=== PATIENT | female | born 1985 | race African-American/Black ===

== ENCOUNTER 2018-11-27 20:09 | Inpatient (IN) ==
[2018-11-27] MEDS ORDERED: CITRIC ACID/SODIUM CITRATE 30 ML UDCUP PO ONE (20:42)
[2018-11-27] MEDS ORDERED: ceFAZolin 3,000 MG in SYRINGE 1 EACH IV ONE (20:42)
[2018-11-27] MEDS ORDERED: FAMOTIDINE 20 MG/2 ML VIAL IV ONE (20:42)
[2018-11-27] MEDS ORDERED: OXYTOCIN/LR 30 UNIT/1,000 ML BAG IV ONE (20:45)
[2018-11-27] MEDS ORDERED: OXYTOCIN 10 UNIT/ML VIAL IM ONE (20:46)
[2018-11-27] MEDS ORDERED: LACTATED RINGERS 1,000 ML IV SCH ×2 (21:00→23:00)
[2018-11-27] MEDS ORDERED: SODIUM CHLORIDE 0.9% 100 ML IV ONE (21:06)
[2018-11-27] MEDS ORDERED: BUPIVACAINE SPINAL 0.75% 2 ML AMP SPINAL ONE (21:22)
[2018-11-27] MEDS ORDERED: ROPIVACAINE 0.5% 30 ML VIAL ONE (21:22)
[2018-11-27 21:27] LABS: Basophils % 0.3 % (0.0-0.8); Eosinophils # 0.1 10*3/uL (0.0-0.87); Eosinophils % 0.6 % (0.00-10.9); Hematocrit 35.9 VOL% (35.7-47.0); Hemoglobin 10.9 GM/DL (12.0-16.0); Immature Granulocytes % 0.5 %; Immature Granulocytes Absolute 0.04 #; Lymphocytes # 2.7 10*3/uL (1.4-4.0); Lymphocytes % 34.7 % (21.3-54.2); Mean Corpuscular HGB Conc 30.4 GM/DL (32-36); Mean Corpuscular Hemoglobin 25 PG (27-34); Mean Corpuscular Volume 82.5 FL (87-102); Mean Platelet Volume 13.2 FL (9.6-12.0); Monocytes # 0.6 10*3/uL (0.11-0.8); Monocytes % 8.3 % (1.7-12.7); Neutrophils # 4.3 10*3/uL (1.4-7.4); Neutrophils % 55.6 % (38.7-73.9); Platelet Count 217 T/CUMM (130-400); Red Blood Count 4.35 MC/CUMM (3.8-5.5); Red Cell Distribution Width 15.7 % (9.3-17.3); White Blood Count 7.7 T/CUMM (4-12)
[2018-11-27 21:32] LABS: INR 0.8; PT Patient Result 9.1 SECS; Partial Thromboplastin Time 23.6 SECS (0-40)
[2018-11-27 21:45] LABS: Albumin 2.4 G/DL (3.4-5.0); Bilirubin,Total 0.6 MG/DL (0.2-1.0); Calcium 9.6 MG/DL (8.5-10.1); Osmolality,Calculated 279.3 MOS/KG (273-304); Potassium 3.6 MMOL/L (3.5-5.1); Total Protein 7.3 G/DL (6.4-8.3)
[2018-11-27 21:50] LABS: Apearance,Urine CLEAR (Clear); Bacteria,Urine Occasional /HPF (Few); Bilirubin,Urine Negative (Negative); Blood, Urine Negative (Negative); Glucose,Urine (UA) Negative (Negative); Ketones,Urine Negative (Negative); Nitrite,Urine Negative (Negative); Protein,Urine Negative; RBC,Urine 2 /HPF (0-4); Squamous Epithelial Cell,Urine Occasional /HPF (0-10); Urine Color Yellow (Yellow); Urine Specific Gravity 1.005 (1.001-1.035); Urine Urobilinogen < 2.0 EU/DL (0.2-1.0); WBC,Urine 1 /HPF (0-6)
[2018-11-27] MEDS ORDERED: SUGAMMADEX 200 MG/2 ML VIAL IV ONE (22:23)
[2018-11-27] MEDS ORDERED: RHO(D) IMMUNE GLOBULIN 300 MCG SYRINGE IM ONE (22:49)
[2018-11-27] MEDS ORDERED: IBUPROFEN 800 MG TABLET PO PRN (22:49)
[2018-11-27] MEDS ORDERED: ACETAMINOPHEN 325 MG TABLET PO PRN (22:49)
[2018-11-27] MEDS ORDERED: OXYTOCIN/LR 20 UNIT/1,000 ML BAG IV ONE (22:49)
[2018-11-27] MEDS ORDERED: DEXTROSE 50% 25 GM/50 ML VIAL IV PRN (22:49)
[2018-11-27] MEDS ORDERED: ONDANSETRON 4 MG/2 ML VIAL IV PRN (22:49)
[2018-11-27] MEDS ORDERED: GLUCAGON 1 MG VIAL IM PRN (22:49)
[2018-11-27] MEDS ORDERED: LORazepam 2 MG/1 ML VIAL IV PRN (22:51)
[2018-11-27] MEDS ORDERED: PROPOFOL 200 MG/20 ML VIAL IV ONE (23:33)
[2018-11-27] MEDS ORDERED: SEVOFLURANE 1 UNIT/15 MINUTE INH ONE (23:33)
[2018-11-27] MEDS ORDERED: fentaNYL 100 MCG/2 ML VIAL ONE (23:33)
[2018-11-27] MEDS ORDERED: SUCCINYLCHOLINE 200 MG/10 ML VIAL ONE (23:34)
[2018-11-27] MEDS ORDERED: ESMOLOL 100 MG/10 ML VIAL IV ONE (23:34)
[2018-11-27] MEDS ORDERED: ROCURONIUM 100 MG/10 ML VIAL IV ONE (23:34)
[2018-11-27] MEDS ORDERED: ONDANSETRON 4 MG/2 ML VIAL ONE (23:34)
[2018-11-27] MEDS ORDERED: MIDAZOLAM 2 MG/2 ML VIAL ONE (23:34)
[2018-11-28] MEDS ORDERED: INSULIN REGULAR 100 UNIT/ML SUBCUT SCH (03:04)
[2018-11-28] MEDS: ceFAZolin 1,000 MG in SYRINGE 1 EACH IV SCH ×2 (05:15→12:58)
[2018-11-28 05:35] LABS: Basophils % 0.1 % (0.0-0.8); Hematocrit 33.9 VOL% (35.7-47.0); Hemoglobin 10.2 GM/DL (12.0-16.0); Immature Granulocytes % 0.5 %; Immature Granulocytes Absolute 0.05 #; Lymphocytes # 1.2 10*3/uL (1.4-4.0); Lymphocytes % 10.7 % (21.3-54.2); Mean Corpuscular HGB Conc 30.1 GM/DL (32-36); Mean Corpuscular Hemoglobin 25 PG (27-34); Mean Corpuscular Volume 82.1 FL (87-102); Mean Platelet Volume 12.5 FL (9.6-12.0); Monocytes # 0.5 10*3/uL (0.11-0.8); Monocytes % 4.1 % (1.7-12.7); Neutrophils # 9.4 10*3/uL (1.4-7.4); Neutrophils % 84.6 % (38.7-73.9); Platelet Count 204 T/CUMM (130-400); Red Blood Count 4.13 MC/CUMM (3.8-5.5); Red Cell Distribution Width 15.4 % (9.3-17.3); White Blood Count 11.1 T/CUMM (4-12)
[2018-11-28] MEDS: MAGNESIUM HYDROXIDE SUSP 30 ML UDCUP PO PRN ×2 (09:36→20:56)
[2018-11-28] MEDS: METOCLOPRAMIDE 10 MG TABLET PO SCH ×2 (09:37→20:57)
[2018-11-28] MEDS: MULTIVITAMIN (PRENATAL) TABLET PO SCH (09:37)
[2018-11-28] MEDS: INSULIN REGULAR 100 UNIT/ML SUBCUT SCH ×2 (09:38→21:11)
[2018-11-28] MEDS: DOCUSATE SODIUM 100 MG CAPSULE PO SCH ×2 (09:38→20:57)
[2018-11-28] MEDS: SIMETHICONE CHEW 80 MG TABLET PO PRN (09:38)
[2018-11-28] MEDS: SERTRALINE 50 MG TABLET PO SCH (09:38)
[2018-11-28] MEDS ORDERED: BISACODYL 10 MG SUPP RECTAL PRN (20:58)
[2018-11-28] MEDS ORDERED: ZALEPLON 5 MG CAPSULE PO PRN (21:17)
[2018-11-29] MEDS: METOCLOPRAMIDE 10 MG TABLET PO SCH ×2 (02:36→13:29)
[2018-11-29] MEDS: INSULIN REGULAR 100 UNIT/ML SUBCUT SCH ×2 (02:37→09:32)
[2018-11-29 03:53] VITALS: BP 131/74
[2018-11-29] MEDS ORDERED: BENZOCAINE/MENTHOL LOZENGE 18/BOX PO PRN (07:16)
[2018-11-29] MEDS: MULTIVITAMIN (PRENATAL) TABLET PO SCH (07:48)
[2018-11-29] MEDS: SIMETHICONE CHEW 80 MG TABLET PO PRN (07:49)
[2018-11-29] MEDS: SERTRALINE 50 MG TABLET PO SCH (07:49)
[2018-11-29] MEDS: DOCUSATE SODIUM 100 MG CAPSULE PO SCH ×2 (07:49→13:28)
== END 2018-11-29 10:35 | disposition home or self-care (01) | DRG 540 ==
LOC: N.LDOUT 20:09 → N.LD 20:11 → N.SDSINP 22:16 → N.LD 23:41 → N.SDSINP 23:41 → N.OB 11-28 08:00 → UNDODISIN 11-29 10:35
PROVIDERS: ADMIT Obstetrics & Gynecology; ATTEND Obstetrics & Gynecology
PROC: LDCSECT (ICD-10-PCS; 2018-11-27 22:00)